=== PATIENT | female | born 2000 | race Caucasian/White ===

== ENCOUNTER 2022-03-17 22:14 | Emergency (ER) | payer MEDICAID, OTHER ==
[~2022-03-17] VITALS: Ht 165.1 cm; Wt 89.0 kg
[2022-03-17 22:30] VITALS: BP 131/70
[2022-03-17] MEDS ORDERED: KETOROLAC TROMETHAMINE 30 MG/ML VIAL IM ONE (23:45)
== END 2022-03-18 00:20 | disposition home or self-care (01) ==
LOC: EMS 22:15
DX: S93.401A Sprain of unspecified ligament of right ankle, initial encounter (principal); W10.9XXA Fall (on) (from) unspecified stairs and steps, initial encounter; Y93.89 Activity, other specified; Y92.89 Other specified places as the place of occurrence of the external cause; Y99.8 Other external cause status
CPT/HCPCS: 99283; 73610; 96372; J1885